=== PATIENT | female | born 1990 | race African-American/Black ===

== ENCOUNTER 2022-08-16 19:55 | Emergency (ER) | payer OTHER ==
[2022-08-16 20:00] VITALS: BP 122/79; PULSE 82; RESP 18; TEMP 97.7; BMI 25.7
[2022-08-16] MEDS ORDERED: SODIUM CHLORIDE 0.9% 500 ML INFUS.BAG IV ONE (21:34)
[2022-08-16] MEDS ORDERED: KETOROLAC TROMETHAMINE 30 MG/1 ML VIAL IVPUSH ONE (21:36)
[2022-08-16] MEDS ORDERED: KETOROLAC TROMETHAMINE 30 MG/1 ML VIAL ONE (21:45)
[2022-08-16 22:35] LABS: URINE APPEARANCE TURBID; URINE BILIRUBIN NEGATIVE (NEGATIVE); URINE COLOR YELLOW; URINE GLUCOSE (UA) NEGATIVE (NEGATIVE); URINE KETONE NEGATIVE (NEGATIVE); URINE LEUK ESTERASE NEGATIVE (NEGATIVE); URINE NITRITE NEGATIVE (NEGATIVE); URINE PROTEIN NEGATIVE (NEGATIVE)
[2022-08-16 22:36] LABS: BASO % 1.2 % (0-2.0); EOS % 2.2 % (0-4.5); HEMATOCRIT 34.6 % (32.4-45.2); LYMPH % 35.8 % (8-40); MCH 20.1 pg (25.7-33.7); MCHC 31.7 g/dl (32.0-36.0); MEAN CELL VOLUME 63.3 fl (80-96); MEAN PLT VOLUME 8.3 fl (7.5-11.1); MONO % 7.9 % (3.8-10.2); NEUT % 52.9 % (42.8-82.8); PLATELET COUNT 285 10^3/uL (134-434); RBC 5.46 M/mm3 (3.60-5.2); RDW 16.7 % (11.6-15.6); WHITE BLOOD COUNT 7.9 K/mm3 (4.0-10.0)
[2022-08-16 22:53] LABS: ALBUMIN 3.6 g/dl (3.4-5.0); BLOOD UREA NITROGEN 10.2 mg/dL (7-18)
[2022-08-16 22:56] LABS: CREATININE 0.9 mg/dL (0.55-1.3)
[2022-08-16 22:58] LABS: BILIRUBIN,TOTAL 0.8 mg/dL (0.2-1); TOT PROT 8.1 g/dl (6.4-8.2)
[2022-08-16 23:10] LABS: ANISOCYTOSIS 2+
[2022-08-16 23:40] LABS: HCG,QUALITATIVE URINE Negative
[2022-08-17] MEDS ORDERED: MAG HYDROX/AL HYDROX/SIMETH 30 ML UNIT-DOSE CUP PO ONE (01:04)
[2022-08-17] MEDS ORDERED: SIMETHICONE 80 MG TAB.CHEW (FP) PO ONE (01:04)
[2022-08-17] MEDS ORDERED: DICYCLOMINE HCL 20 MG TABLET PO ONE (01:05)
[2022-08-17] MEDS ORDERED: SIMETHICONE 80 MG TAB.CHEW (FP) ONE (01:10)
[2022-08-17] MEDS ORDERED: MAG HYDROX/AL HYDROX/SIMETH 30 ML UNIT-DOSE CUP ONE (01:10)
[2022-08-17] MEDS ORDERED: DICYCLOMINE HCL 10 MG CAPSULE ONE (01:10)
== END 2022-08-17 01:36 | disposition home or self-care (01) ==
LOC: JER 19:55
PROC: 3E0333Z Introduction of Anti-inflammatory into Peripheral Vein, Percutaneous Approach (ICD-10-PCS; principal; 2022-08-16)
DX: R10.84 Generalized abdominal pain (principal); K59.00 Constipation, unspecified; R07.9 Chest pain, unspecified
CPT/HCPCS: 36415; 71046-TC-FY; 74177-TC; 80053; 81003; 84484; 84703; 85025; 87086; 93005; 93010; 99285-25; Q9967

== ENCOUNTER 2024-02-29 21:05 | Emergency (ER) | payer BC, OTHER ==
[2024-02-29 21:10] VITALS: TEMP 98.5; BMI 26.9
[2024-02-29 22:16] LABS: HEMATOCRIT 24.3 % (32.4-45.2); HEMOGLOBIN 7.4 GM/dL (10.7-15.3); MCHC 30.5 g/dl (32.0-36.0); MEAN CELL VOLUME 54.8 fl (80-96); MEAN PLT VOLUME 8.2 fl (7.5-11.1); PLATELET COUNT 308 10^3/uL (134-434); RBC 4.43 M/mm3 (3.60-5.2); RDW 21.3 % (11.6-15.6); WHITE BLOOD COUNT 6.5 K/mm3 (4.0-10.0)
[2024-02-29 22:21] LABS: MCH 16.7 pg (25.7-33.7)
[2024-02-29 22:31] LABS: POTASSIUM 4.1 mmol/L (3.5-5.1)
[2024-02-29 22:33] LABS: BLOOD UREA NITROGEN 10.5 mg/dL (7-18); CALCIUM 8.9 mg/dL (8.5-10.1)
[2024-02-29 22:35] LABS: ALBUMIN 3.5 g/dl (3.4-5.0)
[2024-02-29 22:39] LABS: BILIRUBIN,TOTAL 0.7 mg/dL (0.2-1)
[2024-02-29 23:03] LABS: ANISOCYTOSIS 2+; OVALOCYTE 1+; TARGET CELLS 1+; TEAR DROP CELLS 1+
[2024-02-29 23:05] LABS: PLATELET ESTIMATE ADEQUATE
[2024-02-29] MEDS ORDERED: FERROUS SO4 325 MG TABLET (FP) ONE (23:47)
[2024-02-29] MEDS: FERROUS SO4 325 MG TABLET (FP) PO ONE (23:50)
[2024-03-01 00:24] VITALS: BP 115/69; PULSE 64; RESP 13
== END 2024-03-01 00:53 | disposition home or self-care (01) ==
LOC: JER 21:05
DX: D64.9 Anemia, unspecified (principal); N83.202 Unspecified ovarian cyst, left side; D25.9 Leiomyoma of uterus, unspecified; R53.83 Other fatigue; R42 Dizziness and giddiness; R06.09 Other forms of dyspnea
CPT/HCPCS: 36415; 76830-TC; 80053; 84703; 85025; 86850; 86900; 86901; 86922; 99284-25